=== PATIENT | male | born 1965 | race Caucasian/White ===

== ENCOUNTER 2023-06-21 08:26 | Outpatient (CLI) | payer BC, SELFPAY ==
--- NOTE | 2023-06-21 08:15 | RT.EKG_ITS ---
APPROVED REPORT Exam: Resting ECG Reason for Exam: afib Patient Location: O HR:41 bpm ECG Measurements Heart Rate 41 AXIS SD 196 P 48 QRSd 93 QRS 46 QT 467 T 50 QTc 386 Conclusion Sinus bradycardia...rate< 50 Consider left ventricular hypertrophy...(S V1/V2+R V5/V6) >3.50mV
== END 2023-06-21 08:27 | disposition home or self-care (01) ==
LOC: DI.CARD 08:27
PROVIDERS: PCP Nurse Practitioner Family; Visit Provider Internal Medicine Cardiovascular Disease
DX: I48.0 Paroxysmal atrial fibrillation (principal)
CPT/HCPCS: 93010

== ENCOUNTER 2023-08-31 03:40 | Outpatient (CLI) | payer BC, SELFPAY ==
[2023-08-31 12:14] LABS: HCT 44.2 % (40.0-50.0); HGB 15.1 g/dL (13.5-17.5); MCH 32.5 pg (27.0-33.0); MCHC 34.2 % (32.0-36.0); MCV 95 fL (80-95); MPV 9.7 fL (8.0-11.0); Platelet Count 238 10^3/uL (130-400); RBC 4.64 10^6/uL (4.36-5.78); RDW 12.4 % (11.8-14.1); RDW-SD 43.1 fL; WBC 3.78 10^3/uL (4.4-10.8)
[2023-08-31 13:23] LABS: ALT 30 U/L (16-63); AST 24 U/L (15-37); Alkaline Phosphatase 86 U/L (46-116); Anion Gap 3.7 mmol/L (3-11); BUN 13 mg/dL (7-18); Bilirubin, Total 0.8 mg/dL (0.2-1.0); CO2 30.3 mmol/L (21.0-32.0); CREATININE 0.9 mg/dL (0.70-1.30); Calcium 9.1 mg/dL (8.5-10.1); Calculated LDL 66 mg/dL (<100); Chloride 107 mmol/L (98-107); Cholesterol 136 mg/dL (<200); Glucose 104 mg/dL (74-106); HDL Cholesterol 60 mg/dL (40-60); Potassium 4.2 mmol/L (3.5-5.1); Sodium 141 mmol/L (136-145); Total Protein 6.9 g/dL (6.4-8.2); Triglyceride 50 mg/dL (<150)
== END 2023-08-31 03:41 | disposition home or self-care (01) ==
LOC: LOS 03:40
PROVIDERS: PCP Nurse Practitioner Family; Visit Provider Nurse Practitioner Family
DX: I48.0 Paroxysmal atrial fibrillation; Z00.00 Encounter for general adult medical examination without abnormal findings
CPT/HCPCS: 36415; 80053; 80061; 85027

== ENCOUNTER 2024-10-16 10:00 | Day surgery (SDC) | payer OTHER, SELFPAY ==
--- NOTE | 2024-10-15 15:01 | W.ANESPRE ---
General Info Date of Service Date Performed: 10/16/24 Height: 6 ft 0.5 in Weight: 89.811 kg Body Mass Index (BMI): 26.4 Surgical Procedure: Operation Date: 10/16/24 12:20 Proposed Procedure Side Surgeon nate Mcgee MD Meds Allergies and Home Medications Allergies Allergy/AdvReac Type Severity Reaction Status Date / Time No Known Allergies Allergy Verified 10/16/24 10:39 Home Medication ?Medication ?Instructions ?Recorded apixaban 5 mg tablet (Eliquis) 5 mg PO BID #180 tabs 07/21/24 lisinopril 10 mg tablet 10 mg PO DAILY #90 tabs 07/21/24 rosuvastatin 20 mg tablet 20 mg PO DAILY #90 tabs 07/21/24 bisacodyl 5 mg tablet,delayed 5 mg PO ONCE #4 tabs 09/21/24 release (Dulcolax (bisacodyl)) polyethylene glycol 3350 17 17 g PO ONCE #238 grams 09/21/24 gram/dose oral powder Current Visit Medications: Current Medications Generic Name Dose Route Start Last Admin Trade Name Freq PRN Reason Stop Dose Admin Ringer's Solution 1,000 mls @ 80 mls/hr 10/16/24 06:00 IV 10/16/24 23:59 INFUSION MIQUEL IV Miscellaneous Supplies 1 each 10/16/24 06:00 Iv Access IV 10/16/24 23:59 DIRECTED MIQUEL Sodium Chloride 0 ml 10/16/24 06:00 Normal Saline Flush 10 Ml Syr IV 10/16/24 23:59 PRN PRN Sodium Chloride 0 ml 10/16/24 06:00 Normal Saline 10 Ml Vial IJ 10/16/24 23:59 DIRECTED PRN Sterile Water 0 ml 10/16/24 06:00 Water,Injection,Sterile 10 Ml Vial IJ 10/16/24 23:59 DIRECTED PRN PFSH Active Problems Active Problems: Problem Status Onset Code Mid back pain Acute M54.9 Paroxysmal A-fib Acute I48.0 Hypertension Chronic I10 Hyperlipidemia Acute E78.5 Tobacco Smoking/Tobacco Use Status: Never Passive smoking exposure: No Alcohol Alcohol Intake: current Alcohol intake frequency: a few times a week Alcohol type: beer and wine Details: 6 or more drinks monthly or less Substance Use Substance use: Never Substance use type: does not use Vital Signs and Lab Results Vital Signs Most Recent Vital Signs in EMR: Temp Pulse Resp BP Pulse Ox 36.2 C L 54 L 16 128/82 97 10/16/24 10:28 10/16/24 10:28 10/16/24 10:28 10/16/24 10:28 10/16/24 10:28 Lab Results Blood Type / Crossmatch: No Data to Display Complete Blood Count: No Data to Display Complete Metabolic Panel: No Data to Display Liver Function Panel: No Data to Display Coagulation Panel: No Data to Display Cardiac Panel: No Data to Display Arterial Blood Gas: No Data to Display Venous Blood Gas: No Data to Display Pancreas Panel: No Data to Display Thyroid Panel: No Data to Display Infectious Disease: No Data to Display Blood Cultures: No Data to Display Toxicology Panel: No Data to Display Anesthesia Assessment and Plan Anesthesia History Personal History: No History of Anesthesia Complications Family History: No Family History of Anesthesia Complications Exercise Tolerance Exercise Tolerance: Metabolic Equivalents>4 Cardiac & Pulmonary Exam Cardiac Exam: Normal S1/S2 Heart Sounds Pulmonary Exam: Clear Bilateral Breath Sounds Implantable Cardiac Device Does patient have a Pacemaker or an ICD?: No Airway Exam Known Difficult Airway: No Mallampati Class: 3 Mouth Opening: Normal (> 3cm) Thyromental Distance: Greater than 3 cm Neck Range of Motion: Full ROM Neck Circumference: Normal Teeth Condition: Normal Dentition ASA Classification ASA Score: ASA 2 Emergency Case?: No NPO Status NPO Status: NPO Clears >2 hours, Solids >8 hours Anesthesia Plan Resuscitation Status: Full Code Anesthesia Technique: General Anesthesia Airway Planned: Natural Airway Monitors Used: Standard Monitors Preoperative Comments:: 58 yo male. Sig PMHx: HTN (lisinopril), Afib (apixaban), EKG: sinus marya, ?LVH. Passed out with IV, got ephedrine.
[2024-10-16 10:28] VITALS: BP 128/82; PULSE 54; RESP 16; TEMP 36.2; O2SAT 97
[2024-10-16 11:03] VITALS: BMI 26.4
[2024-10-16] MEDS: Lactated Ringers 1,000 ML 80 ML IV (11:03)
--- NOTE | 2024-10-16 11:03 | NUR.NOTE ---
Nursing Note: 1050: Attempted IV start, patient denies any history of passing out with IV starts. Site cleaned and IV started in R hand. Patient was initially appearing within normal movement, then patient complained of sudden onset nausea and was diaphoretic. This nurse called for help. Alma Kaiser RN assisted this nurse in placing cold cloth on patient's forehead and taking BP 80/43, and lights were turned down. This nurse secured IV line and turned fluids up at this time. Patient was placed in trendelenburg position and repeat BP was taken, 67/36. Anesthesia was called in at this time. Anesthesia provider (Torrey Canales CRNA) gave 5mg of ephedrine at 1056, repeat BP was 81/56 and HR 41 at 1058. Torrey Canales CRNA gave an additional 5mg of ephedrine at 1058, repeat BP at 1100 was 107/68 and HR 44. Patient was sat up without any difficulty. 1105 patient states no nausea and dizziness. Fluids turned down to ordered LR @ 80.
[2024-10-16 12:22] VITALS: BP 115/70; PULSE 54; RESP 16; TEMP 36.3; O2SAT 99
--- NOTE | 2024-10-16 12:22 | W.COLOREPORT ---
Date of service: 10/16/24 Time of Service: 12:28 Colonoscopy Report Procedure Description: PROCEDURES PERFORMED: 1. Colonoscopy PREOPERATIVE DIAGNOSIS: Screening colonoscopy POSTOPERATIVE DIAGNOSIS: Mild sigmoid diverticulosis, grade 1 internal hemorrhoids SURGEON: Jesus Mcgee MD INDICATION FOR PROCEDURE: the patient is a 58-year-old man who has no family history of colon cancer. No prior colonoscopy. He has no symptoms of concern. FINDINGS: Terminal ileum was normal. Minimal/mild, scattered diverticular changes throughout the left?colon. No polyps. No inflammation. Mild grade 1 internal hemorrhoid disease. SURVEILLANCE interval/FOLLOW-UP: 10 years SPECIMENS: None EBL: Minimal COMPLICATIONS: None QUALITY of prep: Excellent Procedure in detail: The patient gave written consent and was in agreement with the indications, the potential risks as well as the benefits of the procedure. They were taken to the endoscopy suite and laid in the left lateral decubitus position. A timeout was performed and anesthesia was administered which was tolerated well. I started the procedure. Digital rectal and visual examination was performed and grossly within normal limits. A well-lubricated flexible colonoscope was then introduced and passed without any notable difficulty all the way to the cecum identified by the ileocecal valve and the appendiceal orifice. The terminal ileum was intubated and looked normal. The scope was then slowly withdrawn with the above-noted findings. The patient tolerated the procedure well and was taken to the PACU in hemodynamically stable condition.
--- NOTE | 2024-10-16 12:29 | W.PM.DSUDISC ---
Date of service: 10/16/24 Discharge Plan Disposition Patient Disposition: Home Condition: Good Discharge Details Attending Provider: Hernan Mcgee Primary Care Provider: Nayana Hyman Home Meds and New Rx's Prescriptions: No Action Eliquis 5 mg tablet 5 mg PO BID Qty: 180 3RF lisinopril 10 mg tablet 10 mg PO DAILY Qty: 90 3RF rosuvastatin 20 mg tablet 20 mg PO DAILY Qty: 90 3RF bisacodyl [Dulcolax (bisacodyl)] 5 mg tablet,delayed release (DR/EC) 5 mg PO ONCE Qty: 4 0RF Rx Instructions: Take per colonoscopy instructions provided by ordering providers office polyethylene glycol 3350 17 gram/dose powder 17 g PO ONCE Qty: 238 0RF Rx Instructions: Take per colonoscopy instructions provided by ordering providers office Discharge Instructions Additional Instructions: FINDINGS: Overall no concerning findings to worry about. You do have some mild diverticular disease and mild hemorrhoid disease. These are extremely common conditions and they are benign. Nothing needs to be done about them. Repeat another colonoscopy in 10 years. Stand Alone Forms: Anesthesia Discharge Inst., Colonoscopy Post Instructions, Socrates Madsen (DSU) Activity:: Activity as Tolerated Diet:: As Tolerated
[2024-10-16 12:52] VITALS: BP 120/76; PULSE 48; RESP 16; TEMP 36.2; O2SAT 100
--- NOTE | 2024-10-16 12:59 | W.ANESPOSTOP ---
Postoperative Evaluation Date, Time and Location Date Performed: 10/16/24 Time Performed: 12:59 Patient Location: Day Surgery Unit Vital Signs Most Recent Imported Vital Signs: Most Recent Vital Signs Temp Pulse Resp BP Pulse Ox 36.2 C L 48 L 16 120/76 100 10/16/24 12:52 10/16/24 12:52 10/16/24 12:52 10/16/24 12:52 10/16/24 12:52 Pain Score Most Recent Pain Score: Most Recent Pain Score Pain Level 0 10/16/24 12:52 Assessment Mental Status: Awake (Alert & Oriented to Patient Baseline) Airway and Respiratory Function: Patent airway with normal (patient baseline) respiratory exam Cardiovascular Function: Hemodynamically Stable Hydration Status: Adequately Hydrated Nausea & Vomiting: No Nausea or Vomiting Pain: Pt. Denies Any Pain Peripheral Nerve Block: Patient did not receive a nerve block
== END 2024-10-16 13:17 | disposition home or self-care (01) ==
LOC: SUR 10:00
PROVIDERS: PCP Nurse Practitioner Family; Visit Provider Student in an Organized Health Care Education/Training Program
PROC: 0DJD8ZZ Inspection of Lower Intestinal Tract, Via Natural or Artificial Opening Endoscopic (ICD-10-PCS; CPT 45378; principal; 2024-10-16 12:15)
DX: Z12.11 Encounter for screening for malignant neoplasm of colon (principal); K57.30 Diverticulosis of large intestine without perforation or abscess without bleeding; K64.0 First degree hemorrhoids
CPT/HCPCS: 45378; J2704

== ENCOUNTER 2024-12-01 17:01 | Emergency (ER) | payer OTHER, SELFPAY ==
[2024-12-01] VITALS (14 sets, daily range): BP systolic 113–124; BP diastolic 68–81; PULSE 44–68; RESP 12; TEMP 36.7; O2SAT 93–98
--- NOTE | 2024-12-01 17:00 | RT.EKG_ITS ---
APPROVED REPORT Exam: Resting ECG Reason for Exam: chest pain Patient Location: E HR:56 bpm ECG Measurements Heart Rate 56 AXIS OR 178 P 46 QRSd 82 QRS 62 QT 427 T 67 QTc 414 Conclusion Sinus bradycardia...rate< 60 Probable LVH with secondary repol abnrm...multiple LVH criteria Sinus bradycardia. LVH. No significant change from prior 06/21/23. WD
[2024-12-01 17:51] LABS: Abs Immature Grans 0.01 10^3/uL (0.0-0.06); Absolute Basophil Count 0.07 10^3/uL (0.0-0.2); Absolute Eosinophil Count 0.12 10^3/uL (0.0-0.7); Absolute Lymphocyte Count 1.41 10^3/uL (1.2-3.4); Absolute Monocyte Count 0.46 10^3/uL (0.1-0.8); Absolute Neutrophil Count 3.84 10^3/uL (1.2-6.7); Basophils % 1.2 %; HCT 46.6 % (40.0-50.0); HGB 15.9 g/dL (13.5-17.5); Immature Grans % 0.2 %; Lymphocytes % 23.9 %; MCH 33.1 pg (27.0-33.0); MCHC 34.1 % (32.0-36.0); MCV 97 fL (80-95); Monocytes % 7.8 %; Neutrophils % 64.9 %; Platelet Count 256 10^3/uL (130-400); RBC 4.81 10^6/uL (4.36-5.78); RDW 12.2 % (11.8-14.1); RDW-SD 43.7 fL; WBC 5.91 10^3/uL (4.4-10.8)
--- NOTE | 2024-12-01 17:57 | ED.GENADUL_ITS ---
Discharge Plan Disposition Patient Disposition: Home Condition: Stable Discharge Details Clinical Impression: Feeling of chest tightness Primary Care Provider: Nayana Hyman ED Provider: Ronda Vick Home Meds and New Rx's Prescriptions: No Action Eliquis 5 mg tablet 5 mg PO BID Qty: 180 3RF lisinopril 10 mg tablet 10 mg PO DAILY Qty: 90 3RF rosuvastatin 20 mg tablet 20 mg PO DAILY Qty: 90 3RF bisacodyl [Dulcolax (bisacodyl)] 5 mg tablet,delayed release (DR/EC) 5 mg PO ONCE Qty: 4 0RF Rx Instructions: Take per colonoscopy instructions provided by ordering providers office polyethylene glycol 3350 17 gram/dose powder 17 g PO ONCE Qty: 238 0RF Rx Instructions: Take per colonoscopy instructions provided by ordering providers office Discharge Instructions Instructions: Chest Pain, Adult ED Additional Instructions: Return to the ED for worsening pain and difficulty breathing. Despite negative workup at this time, you may still be at risk for a cardiac event and are strongly encouraged to follow up for further testing. Outpatient order for stress test has been placed. Referrals: Irish Purdy MD [ [facility] STAFF PHYSICIAN] - 1 week (please call to arrange closes follow-up) Nayana Hyman NP [Primary Care Provider] - 3 days Discharge Data Discharge Physician: Ronda Vick [facility] General Date/Time Provider Initiated Documentation: 12/01/24 17:16 . HPI Narrative: 59-year-old male with history of atrial fibrillation and status post ablation presents for evaluation of chest tightness. Patient states that he has been having intermittent chest tightness for the last week. He he states that about 10 to 12 days ago he went for a run and noticed a sharp pain in his chest. He had to stop and start walking secondary to the pain. He states that he has felt quite right since that time. He is normally able to exercise without difficulty. Anytime that he exerts himself he begins to feel that his chest is tight. Denies any fevers or chills. No cough or cold. No shortness of breath. No history of asthma or COPD he is a non-smoker. No history of leg pain or swelling. No known history of congestive heart failure. He is on Eliquis which he has been taking as prescribed. He had a TIA when he had atrial fibrillation but has not had any other episodes of blood clots. Denies any history of thyroid disease. Denies any new medications. Last stress test/echocardiogram was over 4 years ago prior to the ablation. Last episode of chest discomfort was earlier today prior to taking any. He is pain-free at this time. Related Data Home Medications ?Medication ?Instructions ?Recorded ?Confirmed apixaban 5 mg tablet (Eliquis) 5 mg PO BID #180 tabs 07/21/24 12/01/24 lisinopril 10 mg tablet 10 mg PO DAILY #90 tabs 07/21/24 12/01/24 rosuvastatin 20 mg tablet 20 mg PO DAILY #90 tabs 07/21/24 12/01/24 bisacodyl 5 mg tablet,delayed 5 mg PO ONCE #4 tabs 09/21/24 12/01/24 release (Dulcolax (bisacodyl)) polyethylene glycol 3350 17 17 g PO ONCE #238 grams 09/21/24 12/01/24 gram/dose oral powder Previous Rx's ?Medication ?Instructions ?Recorded apixaban 5 mg tablet (Eliquis) 5 mg PO BID #180 tabs 07/21/24 lisinopril 10 mg tablet 10 mg PO DAILY #90 tabs 07/21/24 rosuvastatin 20 mg tablet 20 mg PO DAILY #90 tabs 07/21/24 bisacodyl 5 mg tablet,delayed 5 mg PO ONCE #4 tabs 09/21/24 release (Dulcolax (bisacodyl)) polyethylene glycol 3350 17 17 g PO ONCE #238 grams 09/21/24 gram/dose oral powder Allergies Allergy/AdvReac Type Severity Reaction Status Date / Time No Known Allergies Allergy Verified 12/01/24 17:16 General Stated Complaint: Chest Pain MITA: 2 Review of Systems Narrative: Remainder of review of systems otherwise negative except for as noted in the HPI x 10. Exam Narrative Exam Narrative: General: non-toxic, no respiratory distress, comfortable HEENT: normocephalic, atraumatic, lids and lashes normal, PERRL, EOMI, anicteric sclera, no conjunctival injection, moist oral mucosa Card: regular rate and rhythm, S1S2, no murmurs, rubs, or gallops Lungs: good air entry, clear to auscultation bilaterally. no wheezes, rales, rhonchi, or retractions Abd: soft, non-tender, non-distended, normal bowel sounds, no rebound or guarding, no peritoneal signs Musculoskeletal: full range of motion of arms and legs, no tenderness to palpation. no clubbing, cyanosis, or edema Neurologic: appropriate for age, strength normal Psych: alert and oriented Skin: no petechiae, no lesions, warm and dry Course Vital Signs Vital signs: Vital Signs Temperature 36.7 C 12/01/24 17:13 Pulse 51 L 12/01/24 17:13 Respiratory Rate 12 12/01/24 17:13 Blood Pressure 119/71 12/01/24 17:13 Pulse Oximetry 97 12/01/24 17:13 Temperature 36.7 C 12/01/24 17:13 Temperature Source Oral 12/01/24 17:13 Pulse 51 L 12/01/24 17:13 Respiratory Rate 12 12/01/24 17:13 Blood Pressure 119/71 12/01/24 17:13 Pulse Oximetry 97 12/01/24 17:13 Oxygen Delivery Method Room Air 12/01/24 17:13 Oxygen Flow Rate 0 12/01/24 17:13 Pain Level 3 12/01/24 17:13 Lab/Test Results Lab/Test Results: Laboratory Tests Range/Units 12/01/24 17:44 WBC (4.4-10.8) 10^3/uL 5.91 RBC (4.36-5.78) 10^6/uL 4.81 Hgb (13.5-17.5) g/dL 15.9 Hct (40.0-50.0) % 46.6 MCV (80-95) fL 97 H MCH (27.0-33.0) pg 33.1 H MCHC (32.0-36.0) % 34.1 RDW (11.8-14.1) % 12.2 Plt Count (130-400) 10^3/uL 256 MPV (8.0-11.0) fL 9.0 Immature Gran % % 0.2 Neutrophils % % 64.9 Lymphocytes % % 23.9 Monocytes % % 7.8 Eosinophils % % 2.0 Basophils % % 1.2 Nucleated RBC % (0.0-0.3) % 0.0 Absolute Neutrophils (1.2-6.7) 10^3/uL 3.84 Absolute Lymphocytes (1.2-3.4) 10^3/uL 1.41 Absolute Monocytes (0.1-0.8) 10^3/uL 0.46 Absolute Eosinophils (0.0-0.7) 10^3/uL 0.12 Absolute Basophils (0.0-0.2) 10^3/uL 0.07 Medical Decision Making 59-year-old male with history of atrial fibrillation status post ablation presents for evaluation of intermittent chest tightness for the last week. Last episode was prior to ED arrival. EKG does not show any acute ischemic changes. Laboratory studies unremarkable. 2 troponins. Chest x-ray shows no acute disease. Heart score of 3 secondary to age and risk factors. This puts patient at 0.9 to 1.7% risk of MACE. I do feel that he will benefit from stress test given symptoms. Outpatient stress test order was placed. Unlikely PE, aortic dissection, or cardiac cause of symptoms due to lack of risk factors, description of pain, unremarkable vital signs, and negative work-up. Will discharge home. Patient is to follow up with PMD. Return to the ED for worsening pain and difficulty breathing. Despite negative workup at this time, pt is counselled that they may still be at risk for a cardiac event and are strongly encouraged to follow up for further testing. Quality:SDOH Health Related Social Needs: No Data to Display PFSH All Active Problems (Updated 12/01/24 @ 20:07 by Ronda Vick MD) Feeling of chest tightness (Acute) Mid back pain (Acute) Paroxysmal A-fib (Acute) Hypertension (Chronic) Hyperlipidemia (Acute) Surgical History History of colonoscopy (~10/2024) Social History Smoking/Tobacco Use Status: Never Smoking risk assessment performed?: Yes Alcohol Intake: current Alcohol Intake frequency: a few times a week Alcohol type: beer and wine Details: 6 or more drinks monthly or less Drug use: Never Substance use type: does not use Adopted: No Caregiver/Support person: No Household members: spouse Housing: house Communication Needs: None Do you need help understanding health information?: Never 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[employer], 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 Pets and animals: Yes Pets and animals: cat(s) and dog(s) Do you think of yourself as: straight/heterosexual Current gender identity: male What is your relationship status?: How often do you talk on the phone with friends or family?: three or more times per week How often do you get together with friends or relatives?: three or more times per week How often do you attend temple or rastafari services?: 1-3 times per year Do you belong to any clubs or organized social groups?: yes Panel score (0-1 are the most socially isolated patients): 3 Duration: 30-45 minutes/day Frequency: 5-6 times per week Afua/Nondenominational: Non judaism Special afua needs: No Seatbelt use: always Helmet use: Yes Helmet use: always Drive intox or ride w/intox residential driver: No Do you feel safe at home: Yes Do you feel safe in your relationship?: Yes
--- NOTE | 2024-12-01 18:00 | DI.RAD_ITS ---
Exam(s) XR CHEST 2V PA LATERAL EXAM: XR CHEST 2V PA LATERAL CLINICAL HISTORY: chest pain TECHNIQUE: 2D digital imaging was performed of the chest. Two images were obtained. PA and lateral views were obtained. COMPARISON: No exams were available for comparison FINDINGS: MEDIASTINUM: Normal. HEART: Normal. PULMONARY VASCULATURE: Normal. LUNGS: Clear. PLEURAL SPACE: No pleural effusion or pneumothorax. BONE:Within normal limits for the patient's age. 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 OTHER FINDINGS:Normal. IMPRESSION: No acute pulmonary findings. DATA REPOSITORY: RADIATION DOSE DELIVERED:
[2024-12-01 18:19] LABS: D-Dimer 144 ng/mlFEU (<500)
[2024-12-01 18:29] LABS: ALT 25 U/L (16-63); AST 17 U/L (15-37); Albumin 4.4 g/dL (3.4-5.0); Alkaline Phosphatase 117 U/L (46-116); Anion Gap 6.5 mmol/L (3-11); BUN 17 mg/dL (7-18); Bilirubin, Total 0.7 mg/dL (0.2-1.0); CO2 30.5 mmol/L (21.0-32.0); Calcium 9.5 mg/dL (8.5-10.1); Chloride 107 mmol/L (98-107); Estimated GFR 86.16 (mL/min/1.73m2); Glucose 73 mg/dL (74-106); Magnesium 2.3 mg/dL (1.8-2.4); Potassium 3.9 mmol/L (3.5-5.1); Sodium 144 mmol/L (136-145); Total Protein 7.4 g/dL (6.4-8.2); Troponin I 6 ng/L (<or=76)
[2024-12-01 19:43] LABS: Troponin I 10 ng/L (<or=76)
--- NOTE | 2024-12-04 10:03 | W.ED.FU ---
Date of service: 12/04/24 Time of Service: 10:04 Follow Up Plan: I addended this patient's order for stress test to include indication of chest pain.
== END 2024-12-01 20:28 | disposition home or self-care (01) ==
PROVIDERS: Emergency Provider Emergency Medicine Emergency Medical Services; PCP Nurse Practitioner Family
DX: R07.9 Chest pain, unspecified (principal); R00.1 Bradycardia, unspecified; I10 Essential (primary) hypertension; I48.0 Paroxysmal atrial fibrillation; Z79.01 Long term (current) use of anticoagulants; Z86.73 Personal history of transient ischemic attack (TIA), and cerebral infarction without residual deficits
CPT/HCPCS: 36415; 80053; 93005; 99285; 71046; 83735; 84484; 85025; 85379; 93010; 99284

== ENCOUNTER 2024-12-07 01:25 | Outpatient (CLI) | payer OTHER, SELFPAY ==
--- NOTE | 2024-12-07 | ETT_ITS ---
APPROVED REPORT Exam: Exercise Treadmill Patient Location: Out-Patient Room/Bed: Stress Nurse: Aure Rhodes RN Ordering Provider:BERNIE BARTON, Contact Number: [phone] BMI: 24.40 Baseline Rhythm: Sinus Bradycardia Indications: chest pain Medical History Medical History: afib (s/p ablation 2020), HTN, HLD Cardiac Medications: apixaban, lisinopril, rosuvastatin Allergies: NKA Cardiac Risk Factors: HTN, HLD Previous Cardiac Procedures: cardiac ablation 2020 Pretest Chest Pain Characteristics: No chest pain Exercise History: Physically active Physical Disabilities: n/a Lung Sounds: Clear to auscultation Heart Sounds: Bradycardia Stress Test Details Test: Exercise stress testing was performed using a Ken protocol. Rest Stress HR Resting HR Supine: 44 bpm Max Heart Rate (APMHR): 160 bpm Resting HR Standin bpm Target HR (85% APMHR): 136 bpm Max HR Achieved: 152 bpm % of APMHR: 95 Recovery HR: 63 bpm HR response to stress: Normal HR response to stress BP Resting BP Supine: 110/80 mmHg Resting BP Standin/72 mmHg Max BP: 190/50 mmHg Recovery BP: 116/82 mmHg BP response to stress: Normal blood pressure response to stress. ECG Resting ECG: Sinus Bradycardia Ectopy: rare PAC Comment: 1st degree AV block Stress ECG: Sinus Tachycardia ST Change: Horizontal ST depression, Downsloping ST depression Lead(s): Inferior leads, V5, V6 Maximum ST Deviation: 1-4 mm Arrhythmia: occasional PVCs Recovery ECG: Sinus Rhythm Recovery ST Change: Horizontal ST depression, Downsloping ST depression Lead(s): inferior leads, V5, V6 Recovery ST Deviation: 1-4 mm Recovery Arrhythmia: occasional PACs Clinical Reason for Termination: Target HR Achieved Stress Symptoms: n/a Exercise duration: 10 min58 sec Highest Stage Reached: Stage 4: 4.2 mph at 16% grade. Exercise capacity: 13.43 METs Angina Score: None Koch Treadmill Score: 9.0 Rate Pressure Product: [id number] Stress ECG Conclusion 1. Resting electrocardiogram was normal 2. Patient exercised on the Ken protocol and completed workload of 13.43 METS 3. Normal heart rate and blood pressure response to exercise. The patient achieved 90% of maximal pr edicted heart rate for age. There were no symptoms to suggest angina 4. The electrocardiographic portion of the test was consistent with myocardial ischemia with ST depre ssions noted in leads II, III, aVF, V5 and V6 5. There were no significant dysrhythmias 6. Suggest repeat with imaging (stress echo or myocardial perfusion imaging) if clinically indicated Koch Treadmill Score is 9.0 which is Low risk. Stress Test Summary STAGE Time (mins) Speed (mph) Grade (%) HR BP SpO2 SYMPTOMS METS Supine 44 110/80 98 Standing 51 102/72 1 3 1.7 10 82 126/64 98 4.5 2 6 2.5 12 103 158/62 7 3 9 3.4 14 132 188/66 10 4 12 4.2 16 152 13 1 min recovery 117 190/50 98 3 min recovery 70 150/84 6 min recovery 63 116/[address] depressions back to baseline at test end. Patient asymptomatic through entire test. Left ambulator y in no acute distress, VSS.
== END 2024-12-07 01:45 ==
PROVIDERS: PCP Nurse Practitioner Family; Visit Provider Internal Medicine Cardiovascular Disease
DX: R07.9 Chest pain, unspecified (principal); R00.1 Bradycardia, unspecified
CPT/HCPCS: 93017

== ENCOUNTER 2025-07-27 08:42 | Outpatient (CLI) | payer OTHER, SELFPAY ==
[2025-07-27 10:30] LABS: Hemoglobin A1C 5.3 % (<5.7)
[2025-07-27 10:57] LABS: ALT 26 U/L (10-49); AST 29 U/L (<34); Albumin 4.7 g/dL (3.2-5.0); Alkaline Phosphatase 103 U/L (46-116); Anion Gap 8.4 mmol/L (3-11); BUN 13 mg/dL (9-23); Bilirubin, Total 1.1 mg/dL (0.2-1.2); CO2 29.6 mmol/L (20.0-31.0); Calcium 9.4 mg/dL (8.3-10.6); Chloride 107 mmol/L (98-107); Cholesterol 156 mg/dL (<200); Glucose 96 mg/dL (74-106); HDL Cholesterol 51 mg/dL (>or=40); Potassium 4.3 mmol/L (3.5-5.1); Sodium 145 mmol/L (136-145); Total Protein 7.2 g/dL (5.7-8.2)
[2025-07-27 17:34] LABS: PSA, Screening 1.9 ng/mL (<=4.5)
== END 2025-07-27 08:43 | disposition home or self-care (01) ==
LOC: LBO 08:42
PROVIDERS: PCP Nurse Practitioner Family; Visit Provider Nurse Practitioner Family
DX: Z00.00 Encounter for general adult medical examination without abnormal findings (principal); I10 Essential (primary) hypertension; I48.0 Paroxysmal atrial fibrillation; E78.5 Hyperlipidemia, unspecified; R73.01 Impaired fasting glucose; Z12.5 Encounter for screening for malignant neoplasm of prostate
CPT/HCPCS: 36415; 80053; 80061; 84153; 83036